=== PATIENT | female | born 1965 | race Caucasian/White ===

== ENCOUNTER → 2020-11-03 | Outpatient (CLI) | payer BC ==
[2020-11-03 12:11] LABS: BASOPHILS % 0.5 % (0.0-2.0); EOSINOPHILS % 3.5 % (0.0-5.0); HEMATOCRIT. 42.7 % (36.0-48.0); HEMOGLOBIN. 14.8 g/dL (12.0-16.0); LYMPHOCYTES % 35.9 % (20.0-50.0); MEAN CORPUSCULAR HEMOGLOBIN 30.8 pg (28.0-32.0); MEAN CORPUSCULAR VOLUME 88.5 fL (81.0-99.0); MEAN PLATELET VOLUME 7.4 fl (7.4-10.4); NEUTROPHILS % 53.1 % (40.0-76.0); PLATELET 233 x1000/uL (130-400); RED BLOOD CELL COUNT 4.82 mill/uL (4.2-5.4); RED CELL DISTRIBUTION WIDTH 13.9 % (11.6-14.6)
[2020-11-03 12:17] LABS: CHLORIDE 108 mEq/L (98-107)
[2020-11-03 12:24] LABS: LDL CHOLESTEROL 149 mg/dL (5-100)
[2020-11-03 12:25] LABS: HDL CHOLESTEROL 71 mg/dL (40-59)
== END | disposition home or self-care (01) ==
LOC: LAB 11:46
DX: Z01.89 Encounter for other specified special examinations (principal)
CPT/HCPCS: 36415; 80053; 80061; 83036; 84443; 85025

== ENCOUNTER 2022-10-27 06:11 | Inpatient (IN) | payer BC ==
[~2022-10-27] VITALS: Ht 154.9 cm; Wt 82.3 kg
[2022-10-27 07:47] LABS: BASOPHILS % 0.2 % (0.0-2.0); EOSINOPHILS % 3.3 % (0.0-5.0); HEMATOCRIT. 42.7 % (36.0-48.0); HEMOGLOBIN. 14.4 g/dL (12.0-16.0); LYMPHOCYTES % 20.2 % (20.0-50.0); MEAN PLATELET VOLUME 7.2 fl (7.4-10.4); MONOCYTES % 7.1 % (2.0-8.0); NEUTROPHILS % 69.2 % (40.0-76.0); PLATELET 234 x1000/uL (130-400); RED CELL DISTRIBUTION WIDTH 13.6 % (11.6-14.6)
[2022-10-27] MEDS ORDERED: ASPI-1497 PO ×2 (07:47→13:45)
[2022-10-27] MEDS ORDERED: LOSA50TA41 PO (07:52)
[2022-10-27] MEDS ORDERED: UBID10CA4 MT (07:52)
[2022-10-27] MEDS ORDERED: HYDR25TA MT ×2 (07:52→13:45)
[2022-10-27] MEDS ORDERED: LOSA25TA26 MT (07:52)
[2022-10-27 07:57] LABS: INR 0.9; PROTHROMBIN TIME 10.1 sec (9.6-11.0)
[2022-10-27] MEDS ORDERED: HEPARIN 10,000 UNITS/ML VIAL ONE (08:00)
[2022-10-27] MEDS ORDERED: MAGNESIUM SULFATE 5GM/10ML VIAL IV ONE (08:00)
[2022-10-27] MEDS ORDERED: POTASSIUM CHLORIDE 40MEQ/20ML INJ IV ONE (08:00)
[2022-10-27] MEDS ORDERED: ALBUMIN HUMAN 25GM/100ML (25%) IV ONE (08:00)
[2022-10-27] MEDS ORDERED: NICARDIPINE 100MCG/ML 10ML VIAL (CATH LAB) IV ONE (08:00)
[2022-10-27] MEDS ORDERED: NITROGLYCERIN 50MCG/ML 10ML VIAL (CATH LAB) IV ONE (08:00)
[2022-10-27] MEDS ORDERED: IODIXANOL 320MG/ML 100 ML BOTTLE IV ONE (08:06)
[2022-10-27] MEDS ORDERED: VERAPAMIL HCL 2.5 MG/1 ML 2ML VIAL IV ONE (08:07)
[2022-10-27] MEDS ORDERED: MIDAZOLAM HCL 2 MG/2 ML VIAL ONE (08:07)
[2022-10-27] MEDS ORDERED: DIPHENHYDRAMINE 50MG/ML VIAL ONE ×2 (08:07→08:21)
[2022-10-27] MEDS ORDERED: HEPARIN 1000 UNITS/ML 10ML ONE (08:07)
[2022-10-27] MEDS ORDERED: FENTANYL CITRATE/PF 50MCG/ML 2ML VIAL ONE (08:07)
[2022-10-27] MEDS ORDERED: LIDOCAINE HCL/PF 1% 10 MG/ML 5ML VIAL ONE (08:45)
[2022-10-27] MEDS ORDERED: ATROPINE SULFATE 1MG/10ML SYR IV PRN (09:30)
[2022-10-27] MEDS ORDERED: ACETAMINOPHEN 325MG TABLET PO PRN ×3 (09:30→10:15)
[2022-10-27 10:00] VITALS: BP 126/90
[2022-10-27] MEDS ORDERED: MAGNESIUM/ALUMINUM HYDROXIDE/SIMETHICONE 30ML UDC PO PRN (10:15)
[2022-10-27] MEDS ORDERED: ZOLPIDEM TARTRATE 5MG TABLET PO PRN (10:15)
[2022-10-27] MEDS ORDERED: GUAIFENESIN 200MG/10ML SUGAR FREE UDC PO PRN (10:15)
[2022-10-27] MEDS ORDERED: TRAMADOL 50MG TABLET PO PRN (10:15)
[2022-10-27] MEDS ORDERED: IPRATROPIUM/ALBUTEROL 0.5-3(2.5)MG/3ML NEB NEB PRN (10:15)
[2022-10-27] MEDS ORDERED: CLONIDINE 0.1MG TABLET PO PRN (10:15)
[2022-10-27] MEDS ORDERED: ONDANSETRON HCL 4MG/2ML INJ IV PRN (10:15)
[2022-10-27] MEDS ORDERED: DOCUSATE SODIUM 100MG CAPSULE PO PRN (10:15)
[2022-10-27] MEDS: LOSARTAN POTASSIUM 25 MG TABLET PO SCH (10:15)
[2022-10-27] MEDS ORDERED: MORPHINE SULFATE 4 MG/ML CPJ (NOT FOR IM USE) IV PRN (10:15)
[2022-10-27] MEDS ORDERED: NITROGLYCERIN 0.4MG TABLET SL SL PRN ×2 (10:15→11:45)
[2022-10-27 10:48] LABS: T4 FREE 1.07 ng/dL (0.76-1.46)
[2022-10-27 12:00] VITALS: BP 134/95
[2022-10-27] MEDS ORDERED: ENOXAPARIN 40MG/0.4ML SYR SUBCUT SCH (15:00)
[2022-10-27 16:00] VITALS: BP 124/77
[2022-10-27] MEDS: ALLOPURINOL 300 MG TABLET PO SCH (20:36)
[2022-10-27] MEDS: ATORVASTATIN CALCIUM 40MG TABLET PO SCH (20:37)
[2022-10-27 20:39] VITALS: BP 125/93
[2022-10-27] MEDS: FAMOTIDINE 20MG TABLET PO SCH (20:59)
[2022-10-27] MEDS ORDERED: CHLORHEXIDINE GLUCONATE 4% EXTERNAL USE TOP SCH (21:00)
[2022-10-27] MEDS ORDERED: ASCORBIC ACID 500 MG TABLET PO NR (21:00)
[2022-10-27] MEDS ORDERED: DIPHENHYDRAMINE 25MG CAPSULE PO PRN (21:00)
[2022-10-27] MEDS ORDERED: DOCUSATE SODIUM 100MG CAPSULE PO SCH (21:00)
[2022-10-27] MEDS ORDERED: BISACODYL 10MG SUPP PR PRN (21:00)
[2022-10-28] VITALS: BP 119/76
[2022-10-28 04:50] VITALS: BP 117/74
[2022-10-28] MEDS ORDERED: BLOOD SUGAR DIAGNOSTIC STRIP TEST NR (05:00)
[2022-10-28] MEDS ORDERED: CEFAZOLIN 2,000 MG in DEXT 5% WATER 100 ML IV ONE (05:00)
[2022-10-28] MEDS: ALLOPURINOL 300 MG TABLET PO SCH (05:00)
[2022-10-28 07:18] LABS: BASOPHILS % 0.4 % (0.0-2.0); EOSINOPHILS % 1.5 % (0.0-5.0); HEMATOCRIT. 37.4 % (36.0-48.0); LYMPHOCYTES % 18.4 % (20.0-50.0); MEAN CORPUSCULAR HEMOGLOBIN 30.7 pg (28.0-32.0); MEAN CORPUSCULAR VOLUME 88.1 fL (81.0-99.0); MEAN PLATELET VOLUME 7.5 fl (7.4-10.4); MONOCYTES % 8.4 % (2.0-8.0); NEUTROPHILS % 71.3 % (40.0-76.0); PLATELET 201 x1000/uL (130-400); RED BLOOD CELL COUNT 4.24 mill/uL (4.2-5.4); RED CELL DISTRIBUTION WIDTH 13.6 % (11.6-14.6)
[2022-10-28 07:28] LABS: CHLORIDE 108 mEq/L (98-107)
[2022-10-28 07:37] LABS: HDL CHOLESTEROL 51 mg/dL (40-59); LDL CHOLESTEROL 130 mg/dL (5-100); PHOSPHORUS 2.9 mg/dL (2.5-4.9)
[2022-10-28 08:00] VITALS: BP 132/106
[2022-10-28] MEDS ORDERED: ASPIRIN 325MG TABLET PO SCH (09:00)
[2022-10-28] MEDS ORDERED: CHLORHEXIDINE GLUCONATE 4% EXTERNAL USE TOP SCH ×2 (09:00→21:00)
[2022-10-28] MEDS: LOSARTAN POTASSIUM 25 MG TABLET PO SCH (09:34)
[2022-10-28] MEDS: FAMOTIDINE 20MG TABLET PO SCH ×2 (09:34→21:52)
[2022-10-28 12:00] VITALS: BP 116/73
[2022-10-28] MEDS ORDERED: NOREPINEPHRINE 8 MG in DEXT 5% WATER 242 ML IV ONE (12:00)
[2022-10-28] MEDS: ASPIRIN 81MG TABLET PO SCH (14:22)
[2022-10-28] MEDS ORDERED: ENOXAPARIN 40MG/0.4ML SYR SUBCUT SCH (15:00)
[2022-10-28 16:00] VITALS: BP 120/80
[2022-10-28] MEDS ORDERED: NALOXONE HCL 0.4MG/ML VIAL IV PRN (16:15)
[2022-10-28 20:00] VITALS: BP 126/77
[2022-10-28] MEDS: ATORVASTATIN CALCIUM 40MG TABLET PO SCH (21:52)
[2022-10-29] VITALS (48 sets, daily range): BP systolic 96–152; BP diastolic 42–92
[2022-10-29] MEDS ORDERED: PAPAVERINE HCL 180MG in SODIUM CHLORIDE 0.9% 24ML IV SCH (05:00)
[2022-10-29] MEDS ORDERED: NICARDIPINE 50 MG in NS 230 ML IV ONE (05:00)
[2022-10-29] MEDS ORDERED: DEL NIDO ELECTROLYTE-S(PH 7.4) 1,000 ML IV SCH ×2 (05:00)
[2022-10-29] MEDS ORDERED: EPINEPHRINE 5 MG in DEXT 5% WATER 245 ML IV ONE (05:00)
[2022-10-29] MEDS ORDERED: BLOOD SUGAR DIAGNOSTIC STRIP TEST NR (05:00)
[2022-10-29] MEDS ORDERED: NICARDIPINE 40 MG/200 ML PREMIX 200 ML IV PRN (05:00)
[2022-10-29] MEDS ORDERED: INSULIN REGULAR 100 UNIT in SODIUM CHLORIDE 0.9% 100 ML IV SCH (05:00)
[2022-10-29] MEDS ORDERED: CEFAZOLIN 2,000 MG in DEXT 5% WATER 100 ML IV PRN (05:00)
[2022-10-29] MEDS ORDERED: DOBUTAMINE 250MG PREMIX 250 ML IV SCH (05:00)
[2022-10-29] MEDS ORDERED: NOREPINEPHRINE 8MG/250ML PMX 250 ML IV ONE (05:00)
[2022-10-29] MEDS ORDERED: THROMBIN (BOVINE) 5000 UNITS/VIAL TOP ONE (06:02)
[2022-10-29] MEDS ORDERED: DOPAMINE 400MG/250ML PREMIX 250 ML IV ONE (06:02)
[2022-10-29] MEDS ORDERED: SKIN ADHESIVE 0.7 GM EA TOP ONE (06:02)
[2022-10-29] MEDS ORDERED: POLYMYXIN B SULFATE 500000 UNITS/VIAL ONE (06:03)
[2022-10-29] MEDS ORDERED: HEPARIN 1000 UNITS/ML 10ML ONE ×2 (06:04→10:13)
[2022-10-29] MEDS ORDERED: SEVOFLURANE 250 ML LIQUID INH ONE (06:04)
[2022-10-29] MEDS ORDERED: NICARDIPINE 40MG/200ML PREMIX 0 ML IV ONE (06:05)
[2022-10-29 06:13] LABS: BASOPHILS % 0.5 % (0.0-2.0); EOSINOPHILS % 4.9 % (0.0-5.0); HEMATOCRIT. 37.8 % (36.0-48.0); LYMPHOCYTES % 35.6 % (20.0-50.0); MEAN CORPUSCULAR HEMOGLOBIN 30.2 pg (28.0-32.0); MEAN CORPUSCULAR VOLUME 87.8 fL (81.0-99.0); MEAN PLATELET VOLUME 7.1 fl (7.4-10.4); MONOCYTES % 13.4 % (2.0-8.0); NEUTROPHILS % 45.6 % (40.0-76.0); PLATELET 204 x1000/uL (130-400); RED CELL DISTRIBUTION WIDTH 13.5 % (11.6-14.6)
[2022-10-29 06:23] LABS: PARTIAL THROMBOPLASTIN TIME 29.3 sec (23.4-31.0); PROTHROMBIN TIME 10.6 sec (9.6-11.0)
[2022-10-29 06:24] LABS: CHLORIDE 109 mEq/L (98-107)
[2022-10-29] MEDS ORDERED: ROCURONIUM BROMIDE 10MG/ML VIAL 5ML IV ONE ×2 (07:44→09:45)
[2022-10-29] MEDS ORDERED: ALBUTEROL 6.7GM HFA INHALER ONE (07:56)
[2022-10-29] MEDS ORDERED: FENTANYL CITRATE/PF 50MCG/ML 2ML VIAL ONE (08:33)
[2022-10-29] MEDS: ASPIRIN 81MG TABLET PO SCH (08:57)
[2022-10-29] MEDS: FAMOTIDINE 20MG TABLET PO SCH (08:57)
[2022-10-29] MEDS ORDERED: CHLORHEXIDINE GLUCONATE 4% EXTERNAL USE TOP SCH (09:00)
[2022-10-29] MEDS ORDERED: CALCIUM CHLORIDE 1GM/10ML SYR IV ONE (09:18)
[2022-10-29] MEDS ORDERED: DEXMEDETOMIDINE 400 MCG/100 ML 100 ML IV ONE (10:13)
[2022-10-29] MEDS ORDERED: DEXAMETHASONE 4MG/ML 1ML VIAL ONE (10:13)
[2022-10-29] MEDS ORDERED: FUROSEMIDE 20MG/2ML VIAL ONE (10:13)
[2022-10-29] MEDS ORDERED: PROTAMINE SULFATE 10MG/ML VIAL 25ML IV ONE (10:13)
[2022-10-29] MEDS ORDERED: GLYCOPYRROLATE 0.2 MG/ML 2ML VIAL ONE ×2 (11:55)
[2022-10-29] MEDS ORDERED: NEOSTIGMINE METHYLSULFATE 1MG/ML 10 ML VIAL ONE (11:55)
[2022-10-29] MEDS ORDERED: DOPAMINE 400MG/250ML PREMIX 250 ML IV PRN (12:15)
[2022-10-29] MEDS ORDERED: ACETAMINOPHEN 325MG TABLET PO PRN (12:15)
[2022-10-29] MEDS ORDERED: ALBUMIN HUMAN 12.5G/250ML (5%) IV PRN (12:15)
[2022-10-29] MEDS ORDERED: CALCIUM CHLORIDE 5,000 MG in DEXT 5% WATER 500 ML IV PRN (12:15)
[2022-10-29] MEDS ORDERED: MAGNESIUM SULFATE 3 GM in DEXT 5% WATER 100 ML IV PRN (12:15)
[2022-10-29] MEDS ORDERED: CALCIUM CHLORIDE 3,000 MG in DEXT 5% WATER 250 ML IV PRN (12:15)
[2022-10-29] MEDS ORDERED: ALBUMIN HUMAN 25GM/100ML (25%) IV PRN (12:15)
[2022-10-29] MEDS ORDERED: MAGNESIUM 1 G PREMIX 100 ML IV PRN (12:15)
[2022-10-29] MEDS ORDERED: SODIUM CHLORIDE 0.9% 500 ML IV PRN (12:15)
[2022-10-29] MEDS ORDERED: EPINEPHRINE 5 MG in DEXT 5% WATER 245 ML IV PRN (12:15)
[2022-10-29] MEDS ORDERED: ONDANSETRON HCL 4MG/2ML INJ IV PRN (12:15)
[2022-10-29] MEDS ORDERED: SODIUM BICARBONATE 8.4% 1 MEQ/ML 50ML SYR IV ONE (12:22)
[2022-10-29] MEDS ORDERED: DEXTROSE 50% WATER 50ML SYRINGE IV PRN ×2 (12:30)
[2022-10-29] MEDS ORDERED: BLOOD SUGAR DIAGNOSTIC STRIP TEST SCH (12:30)
[2022-10-29] MEDS ORDERED: KCL 10MEQ/50ML PREMIX 100 ML IV PRN (12:30)
[2022-10-29] MEDS ORDERED: INSULIN REGULAR 100U/100ML PMX 100 ML IV SCH (12:30)
[2022-10-29] MEDS ORDERED: KCL 10MEQ/50ML PREMIX 200 ML IV PRN (12:30)
[2022-10-29] MEDS ORDERED: CEFAZOLIN 1000MG PREMIX 50 ML IV SCH ×2 (12:30→14:00)
[2022-10-29 12:44] LABS: BG BASE EXCESS 1.3 mmol/L (-2.0-2.0); BG CARBOXYHEMOGLOBIN 0.3 % (0.5-1.5); BG DEOXYHEMOGLOBIN 9.2 % (0.0-5.0); BG HCO3 ACT 26.8 mmol/L (22.0-26.0); BG METHEMOGLOBIN 0.1 % (0.0-1.5); BG OXYGEN SATURATION 90.8 % (92.0-98.5); BG OXYHEMOGLOBIN 90.4 % (94.0-97.0); BG PCO2 46.3 mmHg (35.0-45.0); BG PH 7.381 (7.350-7.450); BG PO2 62.1 mmHg (75.0-100.0); BG SAMPLE SITE ALINE; BG TOTAL HEMOGLOBIN 12.3 g/dL (12.0-18.0); BG VENT MODE MASK - NRB
[2022-10-29 13:02] LABS: BASOPHILS % 0.1 % (0.0-2.0); EOSINOPHILS % 0.4 % (0.0-5.0); HEMATOCRIT. 33.1 % (36.0-48.0); HEMOGLOBIN. 11.5 g/dL (12.0-16.0); LYMPHOCYTES % 9.6 % (20.0-50.0); MEAN CORPUSCULAR HEMOGLOBIN 30.5 pg (28.0-32.0); MEAN CORPUSCULAR VOLUME 87.9 fL (81.0-99.0); MONOCYTES % 2.1 % (2.0-8.0); NEUTROPHILS % 87.8 % (40.0-76.0); PLATELET 167 x1000/uL (130-400); RED BLOOD CELL COUNT 3.77 mill/uL (4.2-5.4); RED CELL DISTRIBUTION WIDTH 13.4 % (11.6-14.6)
[2022-10-29] MEDS: BLOOD SUGAR DIAGNOSTIC STRIP TEST SCH ×11 (13:13→23:00)
[2022-10-29] MEDS: KETOROLAC 15MG/ML VIAL IV PRN ×2 (13:16→22:29)
[2022-10-29] MEDS: KCL 10MEQ/50ML PREMIX 150 ML IV PRN ×6 (13:51→21:07)
[2022-10-29] MEDS ORDERED: DEXT 5%/0.45% NACL 1000ML 1,000 ML IV SCH (14:00)
[2022-10-29] MEDS: CEFAZOLIN 1000MG PREMIX 50 ML IV SCH ×2 (14:12→21:09)
[2022-10-29] MEDS: MORPHINE SULFATE 2 MG/ML CPJ (NOT FOR IM USE) IV PRN ×2 (14:51→19:45)
[2022-10-29] MEDS: BACITRACIN 15GM TUBE TOP SCH (17:00)
[2022-10-29] MEDS: DOCUSATE SODIUM 100MG CAPSULE PO SCH (17:20)
[2022-10-29] MEDS: OXYCODONE HCL/ACETAMINOPHEN 5/325MG TABLET PO PRN (17:26)
[2022-10-29 18:01] LABS: HEMATOCRIT 27.1 % (36.0-48.0); HEMOGLOBIN 9.4 g/dL (12.0-16.0); MEAN CORPUSCULAR HEMOGLOBIN 30.6 pg (28.0-32.0); MEAN CORPUSCULAR VOLUME 88.5 fL (81.0-99.0); PLATELET 143 x1000/uL (130-400); RED BLOOD CELL COUNT 3.06 mill/uL (4.2-5.4); RED CELL DISTRIBUTION WIDTH 13.4 % (11.6-14.6)
[2022-10-29 18:07] LABS: CHLORIDE 119 mEq/L (98-107)
[2022-10-29] MEDS: MAGNESIUM 2 G PREMIX 50 ML IV PRN (18:36)
[2022-10-29] MEDS: ACETAMINOPHEN 325MG TABLET PO PRN (19:54)
[2022-10-29] MEDS: IPRATROPIUM/ALBUTEROL 0.5-3(2.5)MG/3ML NEB HHN SCH ×2 (19:57→23:52)
[2022-10-29] MEDS: ATORVASTATIN CALCIUM 40MG TABLET PO SCH (21:06)
[2022-10-30] VITALS (66 sets, daily range): BP systolic 69–132; BP diastolic 46–94
[2022-10-30] MEDS: OXYCODONE HCL/ACETAMINOPHEN 5/325MG TABLET PO PRN ×3 (00:20→18:51)
[2022-10-30 00:49] LABS: HEMATOCRIT 34.8 % (36.0-48.0); HEMOGLOBIN 11.9 g/dL (12.0-16.0); MEAN CORPUSCULAR HEMOGLOBIN 30.1 pg (28.0-32.0); MEAN CORPUSCULAR VOLUME 88.2 fL (81.0-99.0); PLATELET 205 x1000/uL (130-400); RED BLOOD CELL COUNT 3.94 mill/uL (4.2-5.4); RED CELL DISTRIBUTION WIDTH 13.4 % (11.6-14.6)
[2022-10-30] MEDS: BLOOD SUGAR DIAGNOSTIC STRIP TEST SCH ×10 (01:00→20:06)
[2022-10-30] MEDS: IPRATROPIUM/ALBUTEROL 0.5-3(2.5)MG/3ML NEB HHN SCH ×5 (04:29→21:21)
[2022-10-30 04:50] LABS: HEMATOCRIT. 34.8 % (36.0-48.0); MEAN CORPUSCULAR HEMOGLOBIN 30.3 pg (28.0-32.0); MEAN CORPUSCULAR VOLUME 88.1 fL (81.0-99.0); MEAN PLATELET VOLUME 7.3 fl (7.4-10.4); PLATELET 213 x1000/uL (130-400); RED BLOOD CELL COUNT 3.95 mill/uL (4.2-5.4); RED CELL DISTRIBUTION WIDTH 13.8 % (11.6-14.6)
[2022-10-30] MEDS: MORPHINE SULFATE 2 MG/ML CPJ (NOT FOR IM USE) IV PRN ×2 (05:11→22:21)
[2022-10-30 05:43] LABS: PLATELET ESTIMATE NORMAL
[2022-10-30] MEDS ORDERED: MAGNESIUM 2 G PREMIX 50 ML IV NR (06:30)
[2022-10-30] MEDS ORDERED: FUROSEMIDE 40MG/4ML VIAL IVP NR (06:30)
[2022-10-30] MEDS: CEFAZOLIN 1000MG PREMIX 50 ML IV SCH (07:29)
[2022-10-30] MEDS ORDERED: FAMOTIDINE 20MG/2ML VIAL IV SCH (09:00)
[2022-10-30] MEDS: ASPIRIN 81MG EC TABLET PO SCH (09:08)
[2022-10-30] MEDS: DOCUSATE SODIUM 100MG CAPSULE PO SCH ×2 (09:08→17:38)
[2022-10-30] MEDS: CLOPIDOGREL 75MG TABLET PO SCH (09:08)
[2022-10-30] MEDS: BACITRACIN 15GM TUBE TOP SCH ×2 (09:09→17:38)
[2022-10-30] MEDS: ACETAMINOPHEN 325MG TABLET PO PRN ×2 (09:18→14:03)
[2022-10-30] MEDS ORDERED: DEXTROSE 50% WATER 50ML SYRINGE IV PRN (09:30)
[2022-10-30] MEDS: INSULIN LISPRO 100 UNITS/ML SUBCUT SCH ×3 (13:01→21:00)
[2022-10-30] MEDS: ATORVASTATIN CALCIUM 40MG TABLET PO SCH (21:29)
[2022-10-31] VITALS (28 sets, daily range): BP systolic 84–129; BP diastolic 43–84
[2022-10-31] MEDS: IPRATROPIUM/ALBUTEROL 0.5-3(2.5)MG/3ML NEB HHN SCH ×6 (01:32→21:29)
[2022-10-31] MEDS: OXYCODONE HCL/ACETAMINOPHEN 5/325MG TABLET PO PRN ×3 (02:22→20:35)
[2022-10-31 05:53] LABS: BASOPHILS % 0.1 % (0.0-2.0); EOSINOPHILS % 0.4 % (0.0-5.0); HEMATOCRIT. 32.1 % (36.0-48.0); HEMOGLOBIN. 10.9 g/dL (12.0-16.0); LYMPHOCYTES % 17.9 % (20.0-50.0); MEAN CORPUSCULAR HEMOGLOBIN 30.4 pg (28.0-32.0); MEAN CORPUSCULAR VOLUME 89.7 fL (81.0-99.0); MEAN PLATELET VOLUME 7.4 fl (7.4-10.4); MONOCYTES % 10.3 % (2.0-8.0); NEUTROPHILS % 71.3 % (40.0-76.0); PLATELET 185 x1000/uL (130-400); RED BLOOD CELL COUNT 3.58 mill/uL (4.2-5.4); RED CELL DISTRIBUTION WIDTH 13.8 % (11.6-14.6)
[2022-10-31] MEDS: MAGNESIUM 2 G PREMIX 50 ML IV PRN (07:57)
[2022-10-31] MEDS: INSULIN LISPRO 100 UNITS/ML SUBCUT SCH ×4 (08:03→21:00)
[2022-10-31] MEDS: BLOOD SUGAR DIAGNOSTIC STRIP TEST SCH ×2 (08:03→13:20)
[2022-10-31] MEDS: BACITRACIN 15GM TUBE TOP SCH ×2 (08:08→17:29)
[2022-10-31] MEDS: DOCUSATE SODIUM 100MG CAPSULE PO SCH ×2 (08:08→17:29)
[2022-10-31] MEDS: ASPIRIN 81MG EC TABLET PO SCH (08:08)
[2022-10-31] MEDS: CLOPIDOGREL 75MG TABLET PO SCH (08:08)
[2022-10-31] MEDS: FAMOTIDINE 20MG TABLET PO SCH (08:23)
[2022-10-31] MEDS: MORPHINE SULFATE 2 MG/ML CPJ (NOT FOR IM USE) IV PRN (10:12)
[2022-10-31 11:45] LABS: BASOPHILS % 0.3 % (0.0-2.0); EOSINOPHILS % 0.7 % (0.0-5.0); HEMATOCRIT. 32.5 % (36.0-48.0); HEMOGLOBIN. 11.2 g/dL (12.0-16.0); LYMPHOCYTES % 13.9 % (20.0-50.0); MEAN CORPUSCULAR HEMOGLOBIN 30.8 pg (28.0-32.0); MEAN CORPUSCULAR VOLUME 89.6 fL (81.0-99.0); MEAN PLATELET VOLUME 7.2 fl (7.4-10.4); MONOCYTES % 10.3 % (2.0-8.0); NEUTROPHILS % 74.8 % (40.0-76.0); PLATELET 186 x1000/uL (130-400); RED BLOOD CELL COUNT 3.62 mill/uL (4.2-5.4); RED CELL DISTRIBUTION WIDTH 14.1 % (11.6-14.6)
[2022-10-31] MEDS ORDERED: FUROSEMIDE 40MG/4ML VIAL IVP NR (13:45)
[2022-10-31] MEDS: MINERAL OIL 30ML BOTTLE PO SCH (18:45)
[2022-10-31] MEDS: ATORVASTATIN CALCIUM 40MG TABLET PO SCH (20:25)
[2022-11-01] VITALS (11 sets, daily range): BP systolic 91–116; BP diastolic 55–76
[2022-11-01] MEDS: IPRATROPIUM/ALBUTEROL 0.5-3(2.5)MG/3ML NEB HHN SCH ×6 (00:56→20:27)
[2022-11-01] MEDS: OXYCODONE HCL/ACETAMINOPHEN 5/325MG TABLET PO PRN ×3 (05:18→21:37)
[2022-11-01 06:40] LABS: BASOPHILS % 0.2 % (0.0-2.0); EOSINOPHILS % 1.9 % (0.0-5.0); HEMATOCRIT. 29.9 % (36.0-48.0); HEMOGLOBIN. 10.4 g/dL (12.0-16.0); LYMPHOCYTES % 15.4 % (20.0-50.0); MEAN CORPUSCULAR HEMOGLOBIN 31.1 pg (28.0-32.0); MEAN CORPUSCULAR VOLUME 89.4 fL (81.0-99.0); MEAN PLATELET VOLUME 7.3 fl (7.4-10.4); MONOCYTES % 10.3 % (2.0-8.0); NEUTROPHILS % 72.2 % (40.0-76.0); PLATELET 188 x1000/uL (130-400); RED BLOOD CELL COUNT 3.34 mill/uL (4.2-5.4); RED CELL DISTRIBUTION WIDTH 13.7 % (11.6-14.6)
[2022-11-01 07:55] LABS: CHLORIDE 103 mEq/L (98-107)
[2022-11-01] MEDS ORDERED: FUROSEMIDE 40MG/4ML VIAL IVP SCH (08:15)
[2022-11-01] MEDS ORDERED: MAGNESIUM 4 G PREMIX 100 ML IV ONE (08:15)
[2022-11-01] MEDS: MINERAL OIL 30ML BOTTLE PO SCH ×2 (08:49→17:27)
[2022-11-01] MEDS: ASPIRIN 81MG EC TABLET PO SCH (08:50)
[2022-11-01] MEDS: DOCUSATE SODIUM 100MG CAPSULE PO SCH ×2 (08:50→17:27)
[2022-11-01] MEDS: FAMOTIDINE 20MG TABLET PO SCH (08:50)
[2022-11-01] MEDS ORDERED: NALOXONE HCL 0.4MG/ML VIAL IV PRN (09:45)
[2022-11-01] MEDS: METOPROLOL TARTRATE 25MG TABLET PO SCH ×2 (09:57→21:21)
[2022-11-01] MEDS: BACITRACIN 15GM TUBE TOP SCH ×2 (09:58→19:26)
[2022-11-01] MEDS: INSULIN LISPRO 100 UNITS/ML SUBCUT SCH ×3 (12:02→21:00)
[2022-11-01] MEDS: ATORVASTATIN CALCIUM 40MG TABLET PO SCH (21:20)
[2022-11-02] VITALS (16 sets, daily range): BP systolic 82–122; BP diastolic 35–70
[2022-11-02] MEDS: IPRATROPIUM/ALBUTEROL 0.5-3(2.5)MG/3ML NEB HHN SCH ×5 (00:20→20:26)
[2022-11-02 06:18] LABS: CHLORIDE 104 mEq/L (98-107)
[2022-11-02 06:34] LABS: BASOPHILS % 0.4 % (0.0-2.0); EOSINOPHILS % 5.7 % (0.0-5.0); HEMATOCRIT. 29.4 % (36.0-48.0); HEMOGLOBIN. 10.2 g/dL (12.0-16.0); LYMPHOCYTES % 22.3 % (20.0-50.0); MEAN CORPUSCULAR HEMOGLOBIN 31.3 pg (28.0-32.0); MEAN CORPUSCULAR VOLUME 90.3 fL (81.0-99.0); MEAN PLATELET VOLUME 7.5 fl (7.4-10.4); MONOCYTES % 8.4 % (2.0-8.0); NEUTROPHILS % 63.2 % (40.0-76.0); PLATELET 207 x1000/uL (130-400); RED BLOOD CELL COUNT 3.26 mill/uL (4.2-5.4); RED CELL DISTRIBUTION WIDTH 13.8 % (11.6-14.6)
[2022-11-02] MEDS ORDERED: FUROSEMIDE 40MG/4ML VIAL IVP NR (07:15)
[2022-11-02] MEDS: INSULIN LISPRO 100 UNITS/ML SUBCUT SCH (07:20)
[2022-11-02] MEDS: OXYCODONE HCL/ACETAMINOPHEN 5/325MG TABLET PO PRN ×2 (07:50→21:06)
[2022-11-02] MEDS: MINERAL OIL 30ML BOTTLE PO SCH ×2 (08:57→17:58)
[2022-11-02] MEDS: ASPIRIN 81MG EC TABLET PO SCH (08:57)
[2022-11-02] MEDS: DOCUSATE SODIUM 100MG CAPSULE PO SCH ×2 (08:57→17:58)
[2022-11-02] MEDS: FAMOTIDINE 20MG TABLET PO SCH (08:57)
[2022-11-02] MEDS ORDERED: KCL 20MEQ/100ML PREMIX 100 ML IV NR (09:00)
[2022-11-02] MEDS: BACITRACIN 15GM TUBE TOP SCH ×2 (09:00→17:58)
[2022-11-02] MEDS: METOPROLOL TARTRATE 25MG TABLET PO SCH (09:00)
[2022-11-02] MEDS: SPIRONOLACTONE 25MG TABLET PO SCH ×2 (09:30→12:13)
[2022-11-02] MEDS ORDERED: POTASSIUM CHLORIDE 20MEQ TABLET SR PO NR (10:30)
[2022-11-02] MEDS ORDERED: GUAIFENESIN 600MG ER TABLET PO PRN (17:15)
[2022-11-02] MEDS ORDERED: SODIUM CHLORIDE 45ML SPRAY NS PRN (18:00)
[2022-11-02] MEDS: ATORVASTATIN CALCIUM 40MG TABLET PO SCH (21:07)
[2022-11-03] VITALS: BP 103/50
[2022-11-03 04:00] VITALS: BP 116/72
[2022-11-03] MEDS: IPRATROPIUM/ALBUTEROL 0.5-3(2.5)MG/3ML NEB HHN SCH ×2 (04:13→09:02)
[2022-11-03] MEDS: OXYCODONE HCL/ACETAMINOPHEN 5/325MG TABLET PO PRN ×2 (06:09→11:03)
[2022-11-03 06:49] LABS: BASOPHILS % 0.2 % (0.0-2.0); EOSINOPHILS % 5.5 % (0.0-5.0); HEMATOCRIT. 29.1 % (36.0-48.0); HEMOGLOBIN. 10.1 g/dL (12.0-16.0); LYMPHOCYTES % 20.5 % (20.0-50.0); MEAN CORPUSCULAR HEMOGLOBIN 30.9 pg (28.0-32.0); MEAN CORPUSCULAR VOLUME 89.1 fL (81.0-99.0); MEAN PLATELET VOLUME 7.3 fl (7.4-10.4); MONOCYTES % 10.2 % (2.0-8.0); NEUTROPHILS % 63.6 % (40.0-76.0); PLATELET 252 x1000/uL (130-400); RED BLOOD CELL COUNT 3.26 mill/uL (4.2-5.4); RED CELL DISTRIBUTION WIDTH 13.8 % (11.6-14.6)
[2022-11-03 08:00] VITALS: BP 107/46
[2022-11-03 08:06] LABS: CHLORIDE 103 mEq/L (98-107)
[2022-11-03] MEDS: DOCUSATE SODIUM 100MG CAPSULE PO SCH (09:17)
[2022-11-03] MEDS: MINERAL OIL 30ML BOTTLE PO SCH (09:17)
[2022-11-03] MEDS: FAMOTIDINE 20MG TABLET PO SCH (09:17)
[2022-11-03] MEDS: ASPIRIN 81MG EC TABLET PO SCH (09:17)
[2022-11-03] MEDS: BACITRACIN 15GM TUBE TOP SCH (09:18)
[2022-11-03] MEDS ORDERED: CLOP-31 PO (09:38)
[2022-11-03] MEDS ORDERED: LIP40 PO (09:38)
[2022-11-03] MEDS ORDERED: FURO-152 MT (09:38)
[2022-11-03] MEDS ORDERED: SPIR25TA PO (09:38)
[2022-11-03] MEDS ORDERED: FAMO20TA8 PO (09:38)
[2022-11-03 09:51] VITALS: BP 101/46
[2022-11-03] MEDS ORDERED: FUROSEMIDE 20MG TABLET PO NR (11:00)
[2022-11-03 11:03] VITALS: BP 107/46
== END 2022-11-03 11:07 | disposition home health service (06) | DRG 233 ==
LOC: CCL 06:11 → 3WST 06:12 → EEVIPCON 06:12 → CVICU 10-29 12:30 → 3WST 10-31 15:18
PROVIDERS: ADMIT Internal Medicine; ATTEND Internal Medicine
PROC: 4A023N7 Measurement of Cardiac Sampling and Pressure, Left Heart, Percutaneous Approach (ICD-10-PCS; principal; 2022-10-27)
PROC: B2111ZZ Fluoroscopy of Multiple Coronary Arteries using Low Osmolar Contrast (ICD-10-PCS; 2022-10-27)
PROC: 02100Z9 Bypass Coronary Artery, One Artery from Left Internal Mammary, Open Approach (ICD-10-PCS; 2022-10-29)
PROC: 0213093 Bypass Coronary Artery, Four or More Arteries from Coronary Artery with Autologous Venous Tissue, Open Approach (ICD-10-PCS; 2022-10-29)
DX: I25.110 Atherosclerotic heart disease of native coronary artery with unstable angina pectoris (principal); I50.33 Acute on chronic diastolic (congestive) heart failure; J96.01 Acute respiratory failure with hypoxia; E87.29 Other acidosis; I11.0 Hypertensive heart disease with heart failure; E78.1 Pure hyperglyceridemia; E78.5 Hyperlipidemia, unspecified; Z20.822 Contact with and (suspected) exposure to COVID-19; Z85.828 Personal history of other malignant neoplasm of skin; Z90.49 Acquired absence of other specified parts of digestive tract; Z82.49 Family history of ischemic heart disease and other diseases of the circulatory system; Z79.899 Other long term (current) drug therapy; Z79.82 Long term (current) use of aspirin
CPT/HCPCS: 36415; 36600; 71045; 80048; 80053; 80061; 82375; 82805; 82962; 83036; 83605; 83735; 84100; 84132; 84145; 84439; 84443; 85025; 85027; 85347; 86850; 86900; 86920; 87426; 93005; 93306; 93458; 93880; 93970; 94640; 97110; 97116; 97163; 97166; C1729; C1751; C1758; C1769; C1887; C1893; J0690; J1100; J1200; J1250; J1265; J1644; J1650; J1815; J1885; J1940; J2250; J2270; J2440; J2710; J2720; J3010; J3475; J3480; J3490; J7050; J7060; L3908; P9047; Q9957; Q9967